=== PATIENT | male | born 1945 | race Caucasian/White ===

== ENCOUNTER 2019-10-27 13:59 | Outpatient (CLI) | payer MEDICARE, SELFPAY | END 2019-10-27 14:00 | disposition home or self-care (01) | LOC: CHSOUTPT 14:08 | PROVIDERS: PCP Family Medicine; Visit Provider Specialist | DX: C44.629 Squamous cell carcinoma of skin of left upper limb, including shoulder (principal) | CPT/HCPCS: 88305 ==

== ENCOUNTER 2021-12-17 13:04 | Outpatient (CLI) | payer MEDICARE, SELFPAY | END 2021-12-17 13:05 | disposition home or self-care (01) | LOC: ANHAUDASC 13:05 | PROVIDERS: PCP Family Medicine; Visit Provider Otolaryngology | DX: H91.93 Unspecified hearing loss, bilateral (principal) | CPT/HCPCS: 92557; 92567 ==

== ENCOUNTER 2023-12-07 15:08 | Outpatient (CLI) | payer MEDICARE, SELFPAY | END 2023-12-07 15:09 | disposition home or self-care (01) | PROVIDERS: PCP Family Medicine; Visit Provider Specialist | DX: C44.42 Squamous cell carcinoma of skin of scalp and neck (principal); C44.612 Basal cell carcinoma of skin of right upper limb, including shoulder | CPT/HCPCS: 88305 ==